=== PATIENT | male | born 1945 | race Caucasian/White ===

== ENCOUNTER 2022-03-29 07:17 | Day surgery (SDC) | payer OTHER ==
[2022-03-29] MEDS ORDERED: LACTATED RINGERS 1,000 ML IV ONE (07:22)
[2022-03-29] MEDS ORDERED: KETOROLAC 0.45% OPHTH DROPS ONE (07:28)
[2022-03-29] MEDS ORDERED: PROPARACAINE 0.5% OPHTH DROPS 15 ML ONE (07:28)
[2022-03-29] MEDS ORDERED: CYCLOPENTOLATE 1% OPHTH DROPS 2 ML ONE (07:28)
[2022-03-29] MEDS ORDERED: PHENYLEPHRINE 2.5% OPHTH 2 ML DROPS ONE (07:28)
[2022-03-29] MEDS ORDERED: MIDAZOLAM 2 MG/2 ML VIAL ONE (08:49)
--- NOTE | 2022-03-29 08:53 | ANESTHESIA ---
Pre-Anesthesia VS, & Labs - Diagnosis L cataract - Procedure LPhacoIOL Vital Signs: Temp Pulse Resp BP Pulse Ox O2 Flow Rate 35.9 C L 66 22 149/61 H 97 03/29/22 07:22 03/29/22 07:22 03/29/22 07:22 03/29/22 07:22 03/29/22 07:22 Height: 5 ft 4 in Weight (kg): 90.6 kg Body Mass Index: 34.2 BMI Classification: Obese - NPO Other Last Fluid Intake: COFFEE AT 0530 Home Medications and Allergies Home Medications: Ambulatory Orders Aspirin EC [Ecotrin] 325 mg PO DAILY 03/14/22 Atorvastatin [Lipitor] 40 mg PO DAILY 03/14/22 Citalopram [CeleXA] 20 mg PO DAILY 03/14/22 Clopidogrel [Plavix] 75 mg PO DAILY 03/14/22 Losartan [Cozaar] 25 mg PO DAILY 03/14/22 Metoprolol Succinate [Toprol Xl] 50 mg PO DAILY 03/14/22 Nitroglycerin [Nitrostat] 1 tab PO PRN PRN 03/14/22 Vit D3/Vit K2/Calc Frutoborate [Move Free [id number]-Orhgje-[id number]] 1 tab PO DAILY 03/14/22 amLODIPine [Norvasc] 10 mg PO DAILY 03/14/22 Aspirin EC [Ecotrin] 325 mg PO DAILY 03/14/22 Atorvastatin [Lipitor] 40 mg PO DAILY 03/14/22 Citalopram [CeleXA] 20 mg PO DAILY 03/14/22 Clopidogrel [Plavix] 75 mg PO DAILY 03/14/22 Losartan [Cozaar] 25 mg PO DAILY 03/14/22 Metoprolol Succinate [Toprol Xl] 50 mg PO DAILY 03/14/22 Nitroglycerin [Nitrostat] 1 tab PO PRN PRN 03/14/22 Vit D3/Vit K2/Calc Frutoborate [Move Free Xovqt-[id number]] 1 tab PO DAILY 03/14/22 amLODIPine [Norvasc] 10 mg PO DAILY 03/14/22 Allergies/Adverse Reactions: Allergies Allergy/AdvReac Type Severity Reaction Status Date / Time No Known Drug Allergies Allergy Verified 03/14/22 12:16 Anes History & Medical History - Anesthetic History Anesthesia Complications: reports: No previous complications Family history of Anesthesia Complications: Denies Family history of Malignant Hyperthermia: Denies - Medical History Cardiovascular: reports: High cholesterol, Coronary artery disease, Angina, Other (CABG x5) Pulmonary: reports: COPD, Shortness of breath Gastrointestinal: reports: None Urinary: reports: Nocturia Musculoskeletal: reports: Osteoarthritis, Chronic back pain Endocrine/Autoimmune: reports: None Skin: reports: None - Surgical History General: reports: Other Cardiothoracic: reports: Vascular surgery Exam General: Alert, Oriented x3, Cooperative Dental: WNL Mouth Openin Fingerbreadth Mallampati classification: III Thyromental Distance: 4-6 cm Respiratory: Lungs clear Cardiovascular: Regular rate Plan Anesthesia Type: MAC Consent for Procedure(s) Verified and Reviewed: Yes Code Status: Attempt Resuscitation ASA classification: 3-Severe systemic disease Is this case an emergency?: No
[2022-03-29] MEDS ORDERED: EPINEPHrine 1 MG/ML AMP IR ONE (08:57)
[2022-03-29] MEDS ORDERED: BRIMONIDINE 0.2% OPHTH DROPS 5 ML OPTH ONE (08:57)
[2022-03-29] MEDS ORDERED: BSS/LIDOCAINE/EPINEPHRINE 1 ML SYRINGE IO ONE (08:58)
[2022-03-29] MEDS ORDERED: TRIAMCIN/MOXIFLOX OPHTHALMIC 0.6 ML VIAL IO ONE ×2 (08:58→11:07)
[2022-03-29] MEDS ORDERED: TIMOLOL 0.5% OPHTH DROPS OPTH ONE (08:58)
[2022-03-29] MEDS ORDERED: PROPARACAINE 0.5% OPHTH DROPS 15 ML EACHEYE ONE (08:59)
[2022-03-29] MEDS ORDERED: VANCOMYCIN OPHTH (TOPICAL) 10 MG/ML SYRINGE TOP ONE (08:59)
[2022-03-29] MEDS ORDERED: LACTATED RINGERS 700 ML IV ONE (09:12)
--- NOTE | 2022-03-29 09:22 | OPERATIVE REPORT ---
Operative Report - Procedure Note Complications: Date of Surgery: 03/29/22 Preop Dx: Visually significant cataract left eye. This was the first cataract surgery. Postop Dx: Same Procedure: Phacoemulsification with posterior chamber intraocular lens implant left eye Surgeon: Dr. Ez Perdomo Anesthesia: Monitored anesthesia care Complications: None Operative Indications: This is a 76-year-old M with progressive vision loss in the left eye due to 3-4+ nuclear sclerotic, 2+ cortical, 3+ posterior subcapsular, and vacuolar cataract. Best corrected visual acuity was 20/300 with glare to light perception vision in the left eye. Indications for surgery were: - Overall decrease in vision - Difficulty seeing words on a computer screen - Difficulty reading - Difficulty seeing words, closed captions, or game scores on TV - Difficulty seeing street signs - Difficulty driving in low light or at night - Difficulty driving at night because of headlights from other vehicles - Difficulty with glare or bright lights in any situation The patient was consented at length concerning the risks and benefits of cataract surgery after which the patient expressed a desire to proceed with surgery. Operative Procedure: The patient was taken into OR#3 and placed under monitored anesthesia care. A surgical time-out was conducted confirming correct patient, correct procedure, and correct surgical site. The patient was given topical anesthesia and then prepped and draped in the usual sterile fashion. The eye was entered at the 6 and 3 oclock positions. Intracameral Shugarcaine was injected into the anterior chamber followed by a dispersive viscoelastic. A continuous-tear curvilinear capsulorhexis was performed. The nucleus was hydrodissected and phacoemulsified. The cortex was evacuated using automated infusion and aspiration. A cohesive viscoelastic was injected into the capsular bag and a 13.5 diopter intraocular lens was inserted into the bag. Infusion and aspiration were used to evacuate the viscoelastic materials from the eye. The wounds were hydrated and the eye inflated to physiologic pressure using balanced salt solution. Approximately 0.25ml of a mixture of triamcinolone and moxifloxacin was injected trans-sclerally into the vitreous in the inferotemporal quadrant using a 30 gauge cannula. An additional 0.55ml of a mixture of triamcinolone and moxifloxacin was injected subconjunctivally in the superior quadrant for infection and inflammation prophylaxis. Wound integrity was checked with Weck-Caity sponges. The patient was taken from the operating room in good condition and given post-op instructions.
[2022-03-29 09:28] VITALS: BP 145/72
[2022-03-29] MEDS ORDERED: EPINEPHrine 1 MG/ML AMP ONE (11:07)
[2022-03-29] MEDS ORDERED: BSS/LIDOCAINE/EPINEPHRINE 1 ML VIAL ONE (11:07)
[2022-03-29] MEDS ORDERED: TIMOLOL 0.5% OPHTH DROPS ONE (11:07)
[2022-03-29] MEDS ORDERED: VANCOMYCIN OPHTH (TOPICAL) 10 MG/ML SYRINGE ONE (11:07)
[2022-03-29] MEDS ORDERED: BRIMONIDINE 0.2% OPHTH DROPS 5 ML ONE (11:07)
--- NOTE | 2022-03-29 13:57 | ANESTHESIA POST OP EVALUATION ---
Anesthesia Post Eval - Post Anesthesia Eval Vitals: Last Vital Signs Temp 36.1 C L 03/29/22 09:25 Pulse 61 03/29/22 09:25 Resp 17 03/29/22 09:25 BP 145/72 H 03/29/22 09:25 Pulse Ox 98 03/29/22 09:25 O2 Flow Rate CV Function Including HR & BP: Stable Pain Control: Satisfactory Nausea & Vomiting: Negative Mental Status: Baseline Respiratory Status: Airway Patent Hydration Status: Satisfactory Anesthesia Complications: None
== END 2022-03-29 07:18 | disposition home or self-care (01) ==
LOC: SDS 07:17
PROVIDERS: ATTEND Ophthalmology
DX: H25.812 Combined forms of age-related cataract, left eye (principal); I10 Essential (primary) hypertension; E66.9 Obesity, unspecified; Z68.34 Body mass index [BMI] 34.0-34.9, adult; J44.9 Chronic obstructive pulmonary disease, unspecified
CPT/HCPCS: 66984; A9270; J3490; J7120

== ENCOUNTER 2022-05-03 09:04 | Day surgery (SDC) | payer OTHER ==
[~2022-05-03 09:04] MED LIST: CYCLOPENTOLATE 1% OPHTH DROPS 2 ML ONE; KETOROLAC 0.45% OPHTH DROPS ONE; PHENYLEPHRINE 2.5% OPHTH 2 ML DROPS ONE; PROPARACAINE 0.5% OPHTH DROPS 15 ML ONE
[2022-05-03] MEDS ORDERED: LACTATED RINGERS 1,000 ML IV ONE (09:25)
--- NOTE | 2022-05-03 09:52 | ANESTHESIA ---
Pre-Anesthesia VS, & Labs - Diagnosis right senile cataract - Procedure right cataract extraction with IOL Vital Signs: Temp Pulse Resp BP Pulse Ox O2 Flow Rate 36.2 C L 70 22 142/80 H 99 05/03/22 09:22 05/03/22 09:22 05/03/22 09:22 05/03/22 09:22 05/03/22 09:22 Height: 5 ft 7 in Weight (kg): 91 kg Body Mass Index: 31.4 BMI Classification: Obese - NPO >8 hours Home Medications and Allergies Home Medications: Ambulatory Orders Sacubitril/Valsartan [Entresto 24 mg-26 mg Tablet] 1 tab PO BID 05/02/22 Aspirin EC [Ecotrin] 325 mg PO DAILY 03/14/22 Atorvastatin [Lipitor] 40 mg PO DAILY 03/14/22 Citalopram [CeleXA] 20 mg PO DAILY 03/14/22 Clopidogrel [Plavix] 75 mg PO DAILY 03/14/22 Metoprolol Succinate [Toprol Xl] 50 mg PO BID 03/14/22 Nitroglycerin [Nitrostat] 1 tab PO PRN PRN 03/14/22 Vit D3/Vit K2/Calc Frutoborate [Move Free Ejcay-Qzxcsv-[id number]] 1 tab PO DAILY 03/14/22 amLODIPine [Norvasc] 10 mg PO DAILY 03/14/22 Sacubitril/Valsartan [Entresto 24 mg-26 mg Tablet] 1 tab PO BID 05/02/22 Allergies/Adverse Reactions: Allergies Allergy/AdvReac Type Severity Reaction Status Date / Time lisinopril AdvReac Mild Unknown Verified 05/02/22 13:29 Anes History & Medical History - Anesthetic History Anesthesia Complications: reports: No previous complications - Medical History Cardiovascular: reports: High cholesterol, Coronary artery disease, Angina, Other Pulmonary: reports: COPD, Shortness of breath Gastrointestinal: reports: None Urinary: reports: Nocturia Musculoskeletal: reports: Osteoarthritis, Chronic back pain Endocrine/Autoimmune: reports: None Skin: reports: None - Surgical History General: reports: Other Cardiothoracic: reports: Vascular surgery Exam General: Alert Dental: WNL (elma) Mouth Opening: Greater than 4 Fingerbreadths Neck Mobility: Normal Mallampati classification: II Thyromental Distance: greater than 6 cm Respiratory: Lungs clear Cardiovascular: Regular rate, Normal S1, Normal S2 Plan Anesthesia Type: MAC Consent for Procedure(s) Verified and Reviewed: Yes Code Status: Attempt Resuscitation ASA classification: 3-Severe systemic disease Is this case an emergency?: No
[2022-05-03] MEDS ORDERED: TRIAMCIN/MOXIFLOX OPHTHALMIC 0.6 ML VIAL IO ONE ×2 (09:54→10:07)
[2022-05-03] MEDS ORDERED: VANCOMYCIN OPHTH (TOPICAL) 10 MG/ML SYRINGE ONE (09:55)
[2022-05-03] MEDS ORDERED: TIMOLOL 0.5% OPHTH DROPS ONE (09:55)
[2022-05-03] MEDS ORDERED: BSS/LIDOCAINE/EPINEPHRINE 1 ML SYRINGE ONE (09:55)
[2022-05-03] MEDS ORDERED: EPINEPHrine 1 MG/ML AMP ONE (09:55)
[2022-05-03] MEDS ORDERED: BRIMONIDINE 0.2% OPHTH DROPS 5 ML ONE (09:55)
[2022-05-03] MEDS ORDERED: EPINEPHrine 1 MG/ML AMP IR ONE (10:06)
[2022-05-03] MEDS ORDERED: TIMOLOL 0.5% OPHTH DROPS OPTH ONE (10:06)
[2022-05-03] MEDS ORDERED: BRIMONIDINE 0.2% OPHTH DROPS 5 ML OPTH ONE (10:06)
[2022-05-03] MEDS ORDERED: PROPARACAINE 0.5% OPHTH DROPS 15 ML EACHEYE ONE (10:07)
[2022-05-03] MEDS ORDERED: VANCOMYCIN OPHTH (TOPICAL) 10 MG/ML SYRINGE TOP ONE (10:07)
[2022-05-03] MEDS ORDERED: BSS/LIDOCAINE/EPINEPHRINE 1 ML SYRINGE IO ONE (10:07)
[2022-05-03] MEDS ORDERED: MIDAZOLAM 2 MG/2 ML VIAL ONE ×2 (10:08→11:03)
[2022-05-03] MEDS ORDERED: fentaNYL 100 MCG/2 ML VIAL ONE (10:09)
[2022-05-03] MEDS ORDERED: ACETYLCHOLINE 20 MG/2 ML KIT IO ONE ×2 (10:48→10:49)
[2022-05-03] MEDS ORDERED: LACTATED RINGERS 600 ML IV ONE (11:09)
--- NOTE | 2022-05-03 11:33 | OPERATIVE REPORT ---
Operative Report - Other Other Information/Narrative: Date of Surgery: 05/03/22 Preop Dx: Visually significant cataract right eye. Cataract surgery was performed in the left eye on . Postop Dx: Same Procedure: Phacoemulsification with posterior chamber intraocular lens implant right eye Surgeon: Dr. Ez Perdomo Anesthesia: Monitored anesthesia care Complications: Unplanned vitrectomy due to posterior capsule rupture. Operative Indications: This is a 76-year-old M with progressive vision loss in the right eye due to 1-2+ nuclear sclerotic, 2-3+ cortical, and 2+ posterior subcapsular cataract. Best corrected visual acuity was 20/25 with glare to 20/70 vision in the right eye. Indications for surgery were: - Overall decrease in vision - Difficulty seeing words on a computer screen - Difficulty reading - Difficulty seeing words, closed captions, or game scores on TV - Difficulty seeing street signs - Difficulty driving in low light or at night - Difficulty driving at night because of headlights from other vehicles - Difficulty with glare or bright lights in any situation - Difficulty tracking a golf ball - Decreased acuity with firearms The patient was consented at length concerning the risks and benefits of cataract surgery after which the patient expressed a desire to proceed with surgery. Operative Procedure: The patient was taken into OR#3 and placed under monitored anesthesia care. A surgical time-out was conducted confirming correct patient, correct procedure, and correct surgical site. The patient was given topical anesthesia and then prepped and draped in the usual sterile fashion. The eye was entered at the 6 and 3 oclock positions. Intracameral Shugarcaine was injected into the anterior chamber followed by a dispersive viscoelastic. A continuous-tear curvilinear capsulorhexis was performed. The nucleus was hydrodissected and phacoemulsified. However, at the end of nucleus removal a large posteriro capsule was evident. Dispersive viscoelastic was injected through the rupture. A cohesive viscoelastic was injected into the sulcus space and a 12.0 diopter 3-piece intraocular lens was inserted into the sulcus. IOL positioning/stability became an issue and repositioning ocurred several times (to include bringing it back into the anterior chamber and dialling it back into the sulcus). Vireous presented to both wounds and a combination of dry vitrectomy and sweeping with a cyclodialysis spatula was used to remove vitreous from the wounds. A 10-0 nylon suture was placed across the phace wound and Miochol was injected into the chamber to bring the pupil down. Stabilization and centration ot the IOL was eventually achieved. Approximately 0.25ml of a mixture of triamcinolone and moxifloxacin was injected trans-sclerally into the vitreous in the inferotemporal quadrant using a 30 gauge cannula. An additional 0.25ml of a mixture of triamcinolone and moxifloxacin was injected subconjunctivally in the superior quadrant for infection and inflammation prophylaxis. Wound integrity was checked with Weck-Caity sponges and no new vitreous presented. The patient was taken from the operating room in good condition, the complication was explained, additional drops (Vigamox and Pred Forte) and oral medication (acetazolamide) to be taken ordered and SIG explained, and he given routine post-op instructions.
[2022-05-03 12:04] VITALS: BP 140/80
--- NOTE | 2022-05-03 13:40 | ANESTHESIA POST OP EVALUATION ---
Anesthesia Post Eval - Post Anesthesia Eval Vitals: Last Vital Signs Temp 36.4 C L 05/03/22 11:50 Pulse 68 05/03/22 11:50 Resp 16 05/03/22 11:50 BP 140/80 H 05/03/22 11:50 Pulse Ox 99 05/03/22 11:50 O2 Flow Rate CV Function Including HR & BP: Stable Pain Control: Satisfactory Nausea & Vomiting: Negative Mental Status: Baseline Respiratory Status: Airway Patent Hydration Status: Satisfactory Anesthesia Complications: None
== END 2022-05-03 09:05 | disposition home or self-care (01) ==
LOC: SDS 09:04
PROVIDERS: ATTEND Ophthalmology
DX: H25.811 Combined forms of age-related cataract, right eye (principal); Z98.42 Cataract extraction status, left eye; E66.9 Obesity, unspecified; Z68.31 Body mass index [BMI] 31.0-31.9, adult; Z87.891 Personal history of nicotine dependence
CPT/HCPCS: 66984; A9270; J3490; J7120; V2632